=== PATIENT | female | born 1995 | race Caucasian/White ===

== ENCOUNTER 2021-09-24 06:35 | Inpatient (IN) | payer OTHER ==
[2021-09-24 07:45] VITALS: BMI 33.5
[2021-09-24] MEDS: ELECTROLYTE-148 SOLN 1,000 ML IV SCH (08:30)
[2021-09-24] MEDS ORDERED: CITRIC ACID/SODIUM CITRATE 30 ML UNIT-DOSE CUP PO ONE (08:38)
[2021-09-24] MEDS ORDERED: ELECTROLYTE-148 SOLN 500 ML IV ONE (08:38)
[2021-09-24] MEDS ORDERED: morphine SULFATE/PF 1 MG/2 ML (2cc Syringe - QUVA) ONE (08:55)
[2021-09-24] MEDS ORDERED: PROPOFOL 20 ML ONE (09:23)
[2021-09-24] MEDS ORDERED: SENNOSIDES/DOCUSATE COMBO (SENNA PLUS) TABLET (UD) PO PRN (10:48)
[2021-09-24] MEDS ORDERED: METHYLERGONOVINE MALEATE 0.2 MG/1 ML AMP IM PRN (10:48)
[2021-09-24] MEDS ORDERED: IBUPROFEN 600 MG TABLET (FP) PO PRN (10:48)
[2021-09-24] MEDS ORDERED: ACETAMINOPHEN 325 MG TABLET (FP) PO PRN (10:48)
[2021-09-24] MEDS ORDERED: OXYTOCIN 20 UNITS in 0.9% NS 20 UNIT/1,000 ML INFUS.BAG IV SCH (11:00)
[2021-09-24] MEDS ORDERED: ACETAMINOPHEN INJECTION 100 ML IVPB ONE (11:37)
[2021-09-24] MEDS ORDERED: OXYTOCIN 20 UNITS in 0.9% NS 20 UNIT/1,000 ML INFUS.BAG IV ONE (11:37)
[2021-09-24] MEDS: ACETAMINOPHEN 1000 MG/100 ML BAG IVPB PRN ×2 (11:45→21:55)
[2021-09-24] MEDS ORDERED: IBUPROFEN 800 MG/8 ML IJ IVPB ONE (12:43)
[2021-09-24] MEDS: IBUPROFEN 800 MG/8 ML IJ IVPB PRN ×2 (12:55→19:49)
[2021-09-24] MEDS ORDERED: oxyCODONE HCL 5 MG TABLET PO PRN ×2 (22:48)
[2021-09-25 09:31] LABS: BASO % 0.4 % (0-2.0); EOS % 0.5 % (0-4.5); HEMATOCRIT 29.4 % (32.4-45.2); HEMOGLOBIN 9.8 GM/dL (10.7-15.3); MCHC 33.5 g/dl (32.0-36.0); MEAN CELL VOLUME 89.6 fl (80-96); MEAN PLT VOLUME 10.2 fl (7.5-11.1); NEUT % 84.1 % (42.8-82.8); PLATELET COUNT 170 10^3/uL (134-434); RBC 3.28 M/mm3 (3.60-5.2); RDW 13.6 % (11.6-15.6); WHITE BLOOD COUNT 12.7 K/mm3 (4.0-10.0)
[2021-09-25] MEDS: PRENATAL VITAMINS W/ FOLIC ACID TABLET (FP) PO SCH (09:55)
[2021-09-25] MEDS ORDERED: BISACODYL 10 MG SUPP.RECT RC PRN (10:48)
[2021-09-25] MEDS ORDERED: ACETAMINOPHEN 325 MG TABLET (FP) PO PRN (11:29)
[2021-09-25] MEDS: IBUPROFEN 600 MG TABLET (FP) PO PRN ×3 (12:22→23:50)
[2021-09-25] MEDS: SIMETHICONE 80 MG TAB.CHEW (FP) PO PRN ×2 (19:32→23:50)
[2021-09-26] MEDS: SIMETHICONE 80 MG TAB.CHEW (FP) PO PRN ×2 (04:55→12:43)
[2021-09-26] MEDS: IBUPROFEN 600 MG TABLET (FP) PO PRN ×2 (04:58→12:42)
[2021-09-26] MEDS: ELECTROLYTE-148 SOLN 1,000 ML IV SCH (09:19)
[2021-09-26] MEDS: PRENATAL VITAMINS W/ FOLIC ACID TABLET (FP) PO SCH (09:37)
[2021-09-26 14:25] VITALS: BP 107/72; PULSE 94; TEMP 97.9
== END 2021-09-26 15:25 | disposition home or self-care (01) | DRG 787 ==
LOC: JLDR 06:35 → J3W 13:15
PROVIDERS: ADMIT Obstetrics & Gynecology; ATTEND Obstetrics & Gynecology
PROC: 10D00Z1 Extraction of Products of Conception, Low, Open Approach (ICD-10-PCS; principal; 2021-09-24)
DX: O34.219 Maternal care for unspecified type scar from previous cesarean delivery (principal); O41.03X0 Oligohydramnios, third trimester, not applicable or unspecified; O44.43 Low lying placenta NOS or without hemorrhage, third trimester; O36.5930 Maternal care for other known or suspected poor fetal growth, third trimester, not applicable or unspecified; O69.89X0 Labor and delivery complicated by other cord complications, not applicable or unspecified; Z37.0 Single live birth; Z3A.39 39 weeks gestation of pregnancy
CPT/HCPCS: 36415; 85025; 88307-TC; J0131